=== PATIENT | male | born 1945 | race African-American/Black ===

== ENCOUNTER 2019-08-13 12:49 | Inpatient (IN) ==
[2019-08-13] MEDS ORDERED: LOVENOX 1 MG/KG SUBQ ONE (14:06)
--- NOTE | 2019-08-13 14:10 | PROVIDER DOCUMENTATION ---
HPI-General Adult - General Chief Complaint: General Adult Stated Complaint: ADMCARLOS FROM CT Time Seen by Provider: 08/13/19 13:57 Source: patient Allergies/Adverse Reactions: Patient Allergies Allergy/AdvReac Type Severity Reaction Status Date / Time No Known Allergies Allergy Verified 08/13/19 17:07 Home Medications: Home Medication List Medication Instructions Recorded Confirmed Last Taken Type Aspirin 325 mg PO DAILY 08/22/18 08/13/19 Unknown History Ramipril 10 mg PO DAILY 08/22/18 08/13/19 Unknown History - History of Present Illness -Gen Adult Nature of Presenting Problems: 74 yom presents after CTA of chest for bilateral pulmonary emboli. he reports he has had back pain and some SOB but is unable to tell when exactly this began. He reports chest pain with exertion. Location of Pain/Injury: reports: chest, back Pain Radiation: reports: no radiation Quality of Pain: reports: aching Severity: reports: mild Onset/Duration: reports: unsure Timing: reports: still present Context/Activities at Onset: reports: none Modifying Factors: improves with: nothing Associated Symptoms: reports: back/neck pain (NHI) Similar Symptoms Previously?: No Recently seen or treated by another doctor?: Yes (PCP ) Review of Systems - Adult - REVIEW OF SYSTEMS - ADULT Constitutional: reports: no symptoms reported. denies: see HPI, chills, fever, fatique, night sweats, weight gain, weight loss, other Eyes: reports: no symptoms reported. denies: see HPI, discharge, dry eyes, decreased vision, blurred vision, double vision, eye pain, redness, other Ears, Nose, Mouth & Throat: reports: no symptoms reported. denies: see HPI, ear discharge, ear pain, hearing loss, tinnitus, epistaxis, sinus problem, nose pain, loose teeth, mouth/dental pain, mouth swelling, hoarseness, throat pain, throat swelling, other Cardiovascular: reports: see HPI, chest pain. denies: no symptoms reported, edema, heart murmur, irregular heart rate, orthopnea, palpitations, poor circulation, PND, syncope, other Respiratory: reports: shortness of breath. denies: no symptoms reported, see HPI (INTERMITTENT), chronic cough, cough, dyspnea on exertion, excessive sputum production, hemoptysis, pleurisy, wheezing, other Gastrointestinal: reports: no symptoms reported. denies: see HPI, abdominal pain, hematemesis, constipation, diarrhea, difficulty swallowing, frequent heartburn, nausea, poor appetite, rectal bleeding, vomiting, other Genitourinary: reports: no symptoms reported. denies: see HPI, dysuria, discharge, frequency, flank pain, frequent UTI's, hematuria, hesitency, incontinence, urinary retention, urgency, other Musculoskeletal: reports: see HPI, back pain. denies: no symptoms reported, bone pain, frequent leg cramps, joint pain, joint swelling, muscle aches, muscle weakness, neck pain, other Integumentary: reports: no symptoms reported. denies: see HPI, hives, hair loss, itching, mole changes, nail changes, rash, skin sores/ulcer, skin thickening, other Neurological: reports: no symptoms reported. denies: see HPI, ataxia, dizziness/vertigo, headache/migraines, loss of balance, numbness, paresthesia, seizure, slurred speech, syncope, tremors, other Psychiatric: reports: no symptoms reported. denies: see HPI, anxiety, anti- depressant use, alcohol/drug dependence, depression, emotional problems, insomnia, panic attacks, suicidal thoughts, other Endocrine: reports: no symptoms reported. denies: see HPI, change in skin pigment, excessive sweating, goiter, cold intolerance, heat intolerance, increased hunger, increased thirst, polyuria, other Hematologic/Lymphatic: reports: no symptoms reported. denies: see HPI, blood clots, easy bruising, low blood count, lymphedema, prolonged bleeding, swollen lymph nodes, transfusions, other Allergic/Immunologic: reports: no symptoms reported. denies: see HPI, allergic reactions, allergic rhinitis, asthma, eczema, food allergy, frequent infections, hay fever, hives, positive PPD, urticaria, other Past History - Adult - PAST MEDICAL HISTORY-ADULT Review of Records: reports: Nursing Assessment Review, Social history reviewed & non-contributory. Major Childhood Illnesses: reports: denies history Cardiovascular: reports: HTN Respiratory: reports: denies history Gastrointestinal: reports: denies history Obstetrical/Gynecological: reports: denies history Genitourinary: reports: denies history Musculoskeletal: reports: denies history Neurological: reports: denies history Endocrine/Immune: reports: Diabetes Other Conditions: reports: denies history - IMMUNIZATION STATUS Childhood Immunizations: See Nurse Assessment Flu Vaccine: See Nurse Assessment - FAMILY HISTORY Family History: reviewed, not pertinent Physical Exam-General - PHYSICAL EXAM-ADULT Initial Vital Signs Reviewed: Yes - CONSTITUTIONAL General Appearance: appears well, alert, no apparent distress - EYES Eyes: PERRL/EOMI, pink conjunctivae - HEAD, EARS, NOSE, MOUTH & THROAT HENMT: normocephalic/atraumatic, moist mucous membranes, normal ENT inspection - NECK Neck: non-tender, full range of motion, supple - RESPIRATORY Respiratory: lungs clear, normal breath sounds, no respiratory distress - CARDIOVASCULAR Cardiovascular: normal peripheral pulses, regular rate, rhythm, no edema, no gallop, no JVD, no murmur - GASTROINTESTINAL (ABDOMEN) Abdominal Exam: normal bowel sounds, non tender, soft - LYMPHATIC Lymphatic: no adenopathy - MUSCULOSKELETAL Back Exam: normal inspection, no CVA tenderness, no vertebral tenderness Extremity: normal range of motion, non-tender, normal gait, normal inspection - SKIN Integumentary: normal color, normal turgor, warm/dry - NEUROLOGIC Neurologic: grossly normal - PSYCHIATRIC Psych/Mental Status: normal mood/affect, oriented x 3 Progress - PLAN OF CARE/RESULTS Progress/Plan/Lab Results: Vital Signs - 8 hr 08/13/19 13:20 Temperature 97.6 F Pulse Rate 67 Respiratory Rate 18 Blood Pressure 175/95 O2 Sat by Pulse Oximetry 96 Orders Category Date Time Status CBC WITH ELECTRONIC DIFF [HEME] Stat Lab 08/13/19 14:05 Uncollected COMPREHENSIVE METABOLIC PANEL [CHEM] Stat Lab 08/13/19 14:06 Uncollected PROTIME WITH INR [COAG] Stat Lab 08/13/19 14:06 Uncollected PTT [COAG] Stat Lab 08/13/19 14:06 Uncollected Enoxaparin 1 mg/kg [Lovenox 1 mg/kg] Med 08/13/19 14:06 Once 1 each SUBQ NOW ONE Result Diagrams: 08/13/19 15:06 08/13/19 15:06 - EKG 1 Time of EKG reading by physician:: 14:59 EKG Read and Signed by:: Alber Galdamez EKG Interpretation (*Must complete 3 of following elements*): Abnormal Rate: 62 Rhythm: NSR [place]: left QRS: normal GA Interval: normal ST Wave: normal Prior EKG Comparison: no prior EKG - CT/MRI 1 CT Study: Angiogram, Thorax Impression: Abnormal, See EMR Report (EXAM: CT ANGIOGRM PULMONARY ARTERIES 08/13/2019 HISTORY: SOB / PHLEBITIS AND THROMBOPHLEBITIS OF LOWER EXTREMITIES TECHNIQUE: This exam was performed using automated exposure control, adjustment of mA or kV according to patient size, and/or use of iterative reconstruction technique. COMMENT: 3-D MIPS were performed. There are filling defects in the main right pulmonary artery and interlobar artery and the proximal portion of the right upper lobe branch as well as in the lower lobe division and basilar and superior segment branches on the left. The aorta is normal in caliber. There is no evidence of dissection. There are atelectatic appearing opacities in both lower lobes. There is a posterior lateral pleural-based opacity in the right apex. The possibility of a pulmonary infarct cannot be excluded. There is no evidence of significant adenopathy. There is no evidence of right ventricular strain. No acute abnormalities are demonstrated in the abdomen. There are no previous thoracic studies available for comparison. There were ill-defined opacities in both costophrenic sulci bilaterally at the time the previous abdominal study of 08/22/2018 but there is clearly more dense atelectatic opacity today. IMPRESSION: Bilateral pulmonary emboli. Bibasilar atelectasis and possible pulmonary infarct in the right apex. The findings were discussed with Esa Christina MD at 08/13/2019 at 1240. Electronically signed by Tre Adams 08/13/2019 1:18 PM) - CONSULTS/PCP/HOSPITALIST Notification #1 *Consult/PCP/Hospitalist*: HOSPITALIST REPORTS WORKING ON 2 PTS WILL CALL BACK FOR ADMISSION 1600 Time Discussed: 17:07 (dr gustafson) Consult Disposition: Admit Departure - Departure Date of Disposition Decision: 08/13/19 Time of Disposition Decision: 16:37 DIAGNOSIS: PTE (pulmonary thromboembolism) Disposition: ADMITTED INPATIENT 09 Certified Medical Emergency: Emergent Condition: Fair Referrals and Follow-Ups: Esa Christina MD [Primary Care Provider] - - Critical Care Note This patient required my direct & personal management of CC.: No Attestation - Physician/ MINNIE Attestation Patient care was provided by Advanced Practice Provider:: Yes Advanced Practice Provider:: Gifty Harley Advanced Practice Provider documentation review:: The Mid-level provider documentation, treatment plan and medical decision making was reviewed by the physician who agrees with all treatment and medical decision making by the MLP. The physician spent face to face time with patient:: No Advanced Practice Provider documentation review:: Supervising physician onsite and consulted in the evaluation and care of this patient. The physician did not have a face to face encounter with the patient.
[2019-08-13] MEDS ORDERED: LOVENOX SUBQ ONE (14:30)
--- NOTE | 2019-08-13 14:49 | EKG Report ---
Test Performed on : 08/13/2019 2:40:34 PM Test Reason : pte Blood Pressure : / mmHG Vent. Rate : 062 BPM Atrial Rate : 062 BPM P-R Int : 162 ms QRS Dur : 088 ms QT Int : 410 ms P-R-T Axes : 042 -38 041 degrees QTc Int : 416 ms Normal sinus rhythm. Left axis deviation Abnormal ECG No previous ECGs available Unconfirmed Result
[2019-08-13 15:16] LABS: BASO# 0.01 X1000 (0.0-0.2); BASO% 0.1 % (0.0-0.8); EOS% 1.5 % (0.0-10.0); HEMATOCRIT 45.1 % (42.0-52.0); HEMOGLOBIN 14.9 g/dL (14.0-18.0); LYMPH# 1.23 X1000 (1.2-3.4); LYMPH% 18.4 % (20.5-51.1); MCH 27.3 PG (27-31); MCV 82.8 FL (81-99); MONO# 0.48 X1000 (0.11-0.59); MONO% 7.2 % (1.7-9.3); MPV 10.2 FL (7.4-10.4); NEUT# 4.88 X1000 (1.4-6.5); NEUT% 72.8 % (42.2-75.2); PLT 160 X1000 (130-400); RBC 5.45 XMIL (4.7-6.1); RDW 13.1 % (11.5-14.5)
[2019-08-13 15:32] LABS: AGAP 15; ALBUMIN 4.1 g/dL (3.5-5.0); ALKALINE PHOSPHATASE 116 U/L (32-122); BUN 13 mg/dL (8-22); CALCIUM 9.9 mg/dL (8.8-10.2); CHLORIDE 99 mmol/L (98-107); COSMO 274; ESTIMATED GFR > 60; GLUCOSE 93 mg/dL (70-104); GOT 18 U/L (10-34); GPT 12 U/L (10-44); POTASSIUM 4.4 mmol/L (3.5-5.1); SODIUM 137 mmol/L (136-145); TCO2 23 mmol/L (25-35); TOTAL BILIRUBIN 0.77 mg/dL (0.20-1.00); TOTAL PROTEIN 8.3 g/dL (6.3-8.3)
[2019-08-13 15:33] LABS: INR 1.22; PROTIME 15.5 Seconds (11.0-16.0)
[2019-08-13 15:34] LABS: PTT 34.8 Seconds (22.3-41.8)
[2019-08-13] MEDS ORDERED: ZOFRAN IV PRN (18:13)
[2019-08-13] MEDS ORDERED: TYLENOL PO PRN (18:13)
[2019-08-13] MEDS ORDERED: ALTACE PO ONE (19:02)
--- NOTE | 2019-08-13 19:14 | HISTORY AND PHYSICAL ---
PRIMARY CARE PHYSICIAN: Dr. Esa Christina. CHIEF COMPLAINT: Shortness of breath over the past week that has progressively worsened. HISTORY OF PRESENTING ILLNESS: This is a 74-year-old male who presents to [facility] with complaints of shortness of breath over about the last week. States that he has had some symptoms, but he brushed it off as other things, and some back pain and he has had some chest pain with exertion. Workup showed a CTA done as an outpatient by his primary care physician with bilateral pulmonary emboli, bibasilar atelectasis, and possible pulmonary infarct in the right apex, and so he came to the emergency room and will now be admitted for further evaluation and treatment. PAST MEDICAL HISTORY: Hypertension, diabetes diet-controlled, and a DVT. PAST SURGICAL HISTORY: None. FAMILY HISTORY: Reviewed and noncontributory. SOCIAL HISTORY: He currently lives with family. Denies any tobacco, alcohol, or illicit drug use. ALLERGIES: He has no known drug allergies. HOME MEDICATIONS: Takes aspirin 325 mg p.o. daily and ramipril 10 mg p.o. daily. LABORATORY DATA: Showed a white blood cell count of 6.70, hemoglobin of 14.9, hematocrit 45.1, platelets 160,000. PT and INR of 15.5 and 1.22. Sodium 137, potassium 4.4, chloride 99, CO2 of 23, BUN of 13, creatinine 1, glucose 93. STUDIES: A pulmonary arteriogram done on an outpatient basis today at our facility showed bilateral pulmonary emboli, bibasilar atelectasis, and possible pulmonary infarct in the right apex. EKG showed normal sinus rhythm at 62. REVIEW OF SYSTEMS: constitutional: He denied any fever, chills, blurred vision, dizziness. Chest: He has had some mild chest pain with exertion, shortness of breath, and pain in his back. Denied any abdominal pain, constipation, diarrhea, or burning or hurting with urination. PHYSICAL EXAMINATION: VITAL SIGNS: On arrival he had a temperature of 97.6 degrees, pulse 67, respirations 18, blood pressure 175/95, saturating 96% on room air. GENERAL: This is a 74-year-old male lying in the bed. Answers questions appropriately. HEEMNT: Normocephalic, atraumatic. Normal ENT inspection. Oropharynx and nares are clear. EYES: Pupils are equal, round, and reactive to light and accommodation. Extraocular movements are intact. NECK: Normal inspection. Normal range of motion. LUNGS: Clear to auscultation bilaterally with equal lung expansion and chest wall movement. HEART: With regular rate and rhythm. No murmurs, rubs, or gallops. ABDOMEN: Soft, nontender, nondistended. Bowel sounds are present x4 quadrants. MUSCULOSKELETAL: He had 5/5 strength x4 extremities. NEUROLOGICAL: The cranial nerves II through XII appear grossly intact. ASSESSMENT: 1. Bilateral pulmonary emboli with possible pulmonary infarct in the right apex. 2. Shortness of breath. 3. Hypertension. OUR PLAN: He will be admitted to the medical unit and placed on telemetry. We will do a hypercoagulable workup. He will be on strict bed rest. We will do a bilateral venous ultrasound of his legs tomorrow. Do an echocardiogram. Place him on Lovenox 1 mg/kg subcutaneously q. 12. Continue home medications. Place on a healthy heart diet. Further orders after seen by attending. Dictated by LITTLE Small for Jimbo Mendiola MD cc: LITTLE Small MD Wayne E. Thomas, MD I agree with most components of history, physical, assessment and plan. A separate addendum has been dictated. [facility] SYSTEMElena
--- NOTE | 2019-08-13 19:35 | HISTORY AND PHYSICAL ---
ADDENDUM REPORT: This is an addendum to the history and physical dictated by nurse practitioner. I agree with most of the history, physical, assessment, and plan. In brief, Mr. Peterson is a 74-year-old -English man with past medical history of essential hypertension, DVT in 2009 for which he was on Coumadin for about 6 months and then was on aspirin, who comes in with chief complaint of shortness of breath. Apparently, he had seen his regular physician with shortness of breath and back pain, and he underwent CT scan angiography of pulmonary arteries which had detected bilateral pulmonary embolism, most remarkable was the right main trunk, so he was advised to go to the emergency room. In the emergency room, he was found to be mildly hypoxic with saturation of 92% on room air and mildly short of breath, so hospitalist team was consulted for further management. SUBJECTIVE: At the time of my evaluation, he denies any complaints, except feeling short of breath. We discussed with him about the risk factors for PE, and I advised him to discuss with his regular doctor about remaining on lifelong anticoagulation. VITALS: Currently temperature 97.3 degrees, pulse 77, respiratory rate 18, blood pressure 160/88, he is saturating 96% on room air. PHYSICAL EXAMINATION: GENERAL: He is in mild distress because of shortness of breath. HEENT: Oral cavity is moist. LUNGS: Air entry bilaterally equal. No wheeze, rhonchi, or crackles. CARDIOVASCULAR: S1, S2 normal. There is a diastolic murmur heard at the left 2nd intercostal space and systolic murmur on left lower sternal border. ABDOMEN: Soft, nontender. EXTREMITIES: No lower extremity edema. DIAGNOSTIC STUDIES: His CBC and BMP are largely unremarkable. CT scan pulmonary arteriogram performed on August 13 has bilateral pulmonary emboli, bibasilar atelectasis, and possible pulmonary infarct in the right apex, though patient is denying any hemoptysis. ASSESSMENT AND PLAN: Mild hypoxia with bilateral pulmonary embolism. He received subcutaneous enoxaparin 100 mg at 5 p.m., and I would start him on oral apixaban starting tomorrow. I will observe him overnight, considering his mild hypoxia. I will also get echocardiogram and ultrasound lower extremity. 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 Plan of care discussed with the patient and his family at bedside. Their questions have been answered. cc: Jimbo Mendiola MD
[2019-08-14] MEDS: ELIQUIS PO SCH ×2 (01:02→09:15)
[2019-08-14] MEDS ORDERED: LOVENOX SUBQ SCH (02:00)
[2019-08-14 07:31] LABS: BASO# 0.02 X1000 (0.0-0.2); BASO% 0.4 % (0.0-0.8); EOS# 0.15 X1000 (0.0-0.7); HEMATOCRIT 42.3 % (42.0-52.0); HEMOGLOBIN 13.8 g/dL (14.0-18.0); LYMPH# 1.52 X1000 (1.2-3.4); LYMPH% 30.6 % (20.5-51.1); MCHC 32.6 g/dL (33-37); MCV 82.6 FL (81-99); MONO# 0.42 X1000 (0.11-0.59); MONO% 8.5 % (1.7-9.3); NEUT# 2.86 X1000 (1.4-6.5); NEUT% 57.5 % (42.2-75.2); PLT 168 X1000 (130-400); RBC 5.12 XMIL (4.7-6.1); WBC 4.97 X1000 (4.8-10.8)
[2019-08-14 08:02] LABS: AGAP 12; BUN 13 mg/dL (8-22); CALCIUM 9.3 mg/dL (8.8-10.2); CHLORIDE 103 mmol/L (98-107); COSMO 280; ESTIMATED GFR > 60; GLUCOSE 103 mg/dL (70-104); POTASSIUM 4.2 mmol/L (3.5-5.1); SODIUM 140 mmol/L (136-145); TCO2 25 mmol/L (25-35)
[2019-08-14] MEDS ORDERED: ASPIRIN PO SCH (09:00)
[2019-08-14] MEDS ORDERED: ALTACE PO SCH (09:00)
[2019-08-14 11:27] VITALS: BP 158/100
[2019-08-14] MEDS ORDERED: PNEUMOVAX 23 IM ONE (11:43)
--- NOTE | 2019-08-14 12:50 | DISCHARGE SUMMARY ---
ADMISSION DATE: 08/13/2019 DISCHARGE DATE: 08/14/2019 DISCHARGE DISPOSITION: Home. DISCHARGE CONDITION: Hemodynamically stable. He is saturating well on room air. No shortness of breath at rest. No shortness of breath on regular physical activity. He was able to go to the bathroom without becoming short of breath. DISCHARGE DIAGNOSES: 1. Acute bilateral pulmonary embolism. 2. Lung infarct associated with pulmonary embolism. 3. Shortness of breath due to pulmonary embolism. OTHER DIAGNOSES: 1. Essential hypertension. 2. Past history of DVT in 2009 for which he was on Coumadin, and then he was on aspirin. CONSULTATION DURING HOSPITAL ADMISSION: None. DISCHARGE MEDICATIONS: Ramipril 10 mg daily, apixaban 10 mg b.i.d. for 7 days and then 5 mg b.i.d. for 6 months. OTHER DIAGNOSIS: History of cholecystectomy. VITALS: At the time of discharge temperature 98.8 degrees, pulse 65, respiratory 15, blood pressure 140/80, saturating 100% on room air. PHYSICAL EXAMINATION: General: Does not appear in any acute distress. Well-built man. Oral cavity is moist, air entry bilaterally equal. No wheeze or crackles. S1, S2 normal. Abdomen soft, nontender. No lower extremity edema. He was alert and oriented x3. SIGNIFICANT LABS: During hospital admission and discharge, hemoglobin 13.8, platelet 168,000. INR 1.2, potassium 4.2, BUN 13, creatinine 1. SIGNIFICANT MICROBIOLOGY DURING HOSPITAL ADMISSION: None. SIGNIFICANT IMAGING DURING HOSPITAL ADMISSION: Pulmonary arteriogram had bilateral pulmonary emboli, bibasilar atelectasis, and possibly pulmonary infarct in the right apex. Electrocardiogram had normal sinus rhythm, left axis deviation. HOSPITAL COURSE SUMMARY: Mr. Peterson is a 74-year-old man with past medical history of DVT in lower extremity in 2009 for which he took Coumadin for 6 months and since then was on aspirin 325 mg daily, who had been experiencing shortness of breath with physical exertion and for those complaints, he saw his regular doctor who had ordered CT scan angiogram pulmonary arteries. CT scan angiogram pulmonary arteries had detected bilateral pulmonary embolism, so he was called on to go to the emergency room. In the emergency room, he was found to be in mild shortness of breath and he had hypoxia with oxygen saturation of 92% on room air so the hospitalist team was consulted for further management. He got a dose of enoxaparin subcutaneously and then he was started on oral Eliquis. He was tolerating it well the next day and his oxygen saturation improved on room air. It was decided to discharge him on oral anticoagulation. Echocardiogram was performed. The result is pending. The patient was advised to have follow up with his regular doctor within 7 days. He was also advised to have an age-appropriate cancer screening as well as hypercoagulability workup as an outpatient. More than 30 minutes spent on this patient. Plan of care was discussed with him. His questions were answered. cc: Jimbo Mendiola MD
--- NOTE | 2019-08-14 15:34 | ECHO REPORT ---
ORDER DATE: 08/14/2019 INTERPRETING PHYSICIAN: Dr. Willy Denis ECHOCARDIOGRAPHIC MEASUREMENTS: 1. Interventricular septum 1.2. 2. Left ventricular posterior wall 0.9. 3. Diastolic diameter 4.7. 4. Left atrium 4.1. 5. Aorta 3. SUMMARY OF TWO-DIMENSIONAL IMAGIN. The aortic valve leaflets are trileaflet. 2. Mitral valve was normal. 3. Tricuspid valve was normal. 4. Pulmonic valve was normal. 5. There is trace tricuspid regurgitation. Peak velocity across the tricuspid valve was 2.8 m/sec. 6. Pulmonary artery systolic pressure 42 mmHg. 7. There is mild mitral regurgitation. 8. Peak velocity across the aortic valve less than 2 m/sec. 9. By Doppler studies, there is no aortic stenosis or regurgitation. Normal left ventricular cavity size. Estimated ejection fraction of 65% to 70%. 10. Technically suboptimal study. Poor acoustic window. 11. There is no pericardial effusion or obvious intracardiac mass or thrombus seen. cc: MD Radha Meeks CRNP
== END 2019-08-14 12:22 | disposition home or self-care (01) | DRG 176 ==
LOC: ED 12:49 → 3N 12:50
PROVIDERS: ATTEND Internal Medicine